=== PATIENT | male | born 1965 | race Asian ===

== ENCOUNTER 2024-07-10 21:00 | Inpatient (IN) | payer OTHER, SELFPAY ==
[2024-07-10] VITALS (10 sets, daily range): BP systolic 75–133; BP diastolic 56–71; BMI 33.3
--- NOTE | 2024-07-10 16:12 | ED.GENMED ---
History of Present Illness
General
Chief Complaint: Dizziness
Source: patient
Exam Limitations: none
Time Seen by Provider: 07/10/24 16:02
History of Present Illness
History of Present Illness:
See MDM
Past History
Past History
ED Past Medical History: None
ED Past Surgical History: None
Social History
Tobacco: Non-smoker
Alcohol: None
Phy Exam
Physical Exam
Physical Exam:
See MDM
Course
Orders/Labs/Results
Orders:
Orders
07/10/24 16:11
Electrocardiogram (*1) Urgent
Reason for Study: Shortness of Breath
EKG- Treatment ONCE
0.9% Sodium Chloride 1000 ml [Nss] 1,000 ml IV BOLUS
Acetaminophen [Tylenol] 1,000 mg PO NOW STA
CR Chest - 2 Views Urgent
Comment:
Reason For Exam: cough, fever
07/10/24 16:13
COVID-19 Antigen Urgent
Source: Nasal Swab
Complete Blood Count/With Diff Urgent
Comprehensive Metabolic Panel Urgent
Lactic Acid Q4H
Comment: CANCEL 2nd LACTIC ACID IF 1st LACTIC ACID IS LESS THAN 2
Blood Culture Urgent
BAKARI Source: Blood/Venous
Specimen Description:
Influenza A+B Rapid Molecular Urgent
BAKARI Source: Nasal Swab
Specimen Description:
07/10/24 17:50
0.9% Sodium Chloride 1000 ml [Nss] 1,000 ml IV BOLUS
Ketorolac [Toradol] 30 mg IV NOW STA
07/10/24 17:54
Urinalysis Reflex To Culture Urgent
Date Specimen was Collected: 07/10/24
Time Specimen was Collected: 17:46
07/10/24 19:52
Piperacillin/Tazo 3.375 Gram [Zosyn] 3.375 gram in 50 ml IV NOW
Vancomycin [Vancocin] 2,000 mg 0.9% Sodium Chloride 500 ml [Nss] 500 ml IV NOW
07/10/24 19:55
NSS 1000mL Bolus over 1 hr 0.9% Sodium Chloride 1000 ml [Nss] 1,000 ml IV BOLUS
07/10/24 20:15
Lactic Acid Q4H
Comment: CANCEL 2nd LACTIC ACID IF 1st LACTIC ACID IS LESS THAN 2
Abnormal Lab Results
07/10/24
16:13
RBC 4.36 L 10^6/uL
(4.70-6.10)
MCH 33.5 H pg
(27.0-31.0)
Absolute Lymphs (auto) 0.8 L 10^3/uL
(1.2-3.4)
Absolute Monos (auto) 0.0 L 10^3/uL
(0.1-0.6)
Immature Gran % 0.6 H %
(0-0.5)
Neutrophils % 82.4 H %
(42.2-75.2)
Lymphocytes % 15.8 L %
(20.5-51.1)
Monocytes % 0.4 L %
(1.7-9.3)
Carbon Dioxide 21 L mmol/L
(22-30)
Glucose 107 H mg/dl
(70-99)
Lactic Acid 2.7 H mmol/L
(0.7-2.0)
07/10/24 16:13
07/10/24 16:13
Vital Signs
Initial and Last Documented VS:
Initial Vital Signs
Pulse Resp Pulse Ox
113 22 95
07/10/24 16:03 07/10/24 16:03 07/10/24 16:03
Last Documented Vital Signs
Temp Pulse Resp BP Pulse Ox
98.0 F 107 27 83/67 96
07/10/24 19:42 07/10/24 19:36 07/10/24 19:36 07/10/24 19:36 07/10/24 19:36
MDM/Problems Addressed
Differential Diagnosis Includes:
HPI and MDM Narrative:
58-year-old male presenting for evaluation of fever and chills. This occurred soon after he ate lunch today. He is starting to quit smoking so he was started nicotine gum for the first time today. Soon afterwards, patient felt all of the
symptoms. He states he is using the gum this time because he is allergic to the nicotine patch.
Patient found to have a fever 102.9 orally. Will give Tylenol. Will look for source of infection. He has no rash or evidence of meningismus. He is otherwise well-appearing nontoxic. Given the mild cough that he discusses, will obtain chest
x-ray and COVID test
Physical exam
General: Well appearing and non-toxic
HEENT: protecting airway. Mildly dry mucous membranes
Neck: No meningismus, supple
CV: No evidence of cyanosis. Mild tachycardia
Resp: No accessory muscle use
Abd: Non-distended
Extremities: No deformities . No leg edema or effusions
Neuro: alert
Psych: Normal affect
Skin: Warm
Problems Addressed including Acute and Chronic Conditions affecting care:
1. Fever
Acuity: acute
Prognosis: stable
Details: Patient with Tylenol. Will look for source of infection
Updates
After IV fluids, blood pressure is dropping. Given the elevated lactic acid, there is concern for sepsis. Patient started on vancomycin and Zosyn. Chest x-ray concerning for possible left lower lobe pneumonia. Will admit
Differential Diagnosis (but not limited to): COVID, pneumonia, UTI
Testing considered: D-dimer but tachycardia likely in the setting of fever
Drug therapy (if applicable): OTC meds, please see d/c instruction regarding Rx drugs
Amount and/or Complexity of Data Reviewed
Clinical info obtained from: Patient
External data reviewed: N/A
Labs I independently reviewed (but not limited to): Elevated lactic acid
Radiology: X-ray independently reviewed: Questionable left lower lobe pneumonia on chest x-ray
Pulse Ox: not hypoxic
EKG independently reviewed: Sinus tachycardia, normal axis, no STEMI
Elderly Companion: Sinus rhythm
Critical Care: N/A
Risk of Complication:
Social Determinants of health: Good social support
Discussed with other providers: Hospitalist
Escalation of Care includes Admit/Obs: Given the fever and concern for sepsis, patient started on broad-spectrum antibiotics and will admit
Occasional wrong word or 'sound a like' substitutions may have occurred due to the inherent limitations of voice recognition software. Read the chart carefully and recognize, using context, where substitutions have occurred.
*Critical Care Note
Total Time (30-74mins, 75-104mins- exclusive of procedures): Not Applicable
ED Attending Note
-
Portions of this chart may have been created with voice recognition software.� Occasional wrong word or��sound alike� substitutions may have occurred due to the inherent limitations of voice recognition software.
Discharge Plan
Departure
Patient Disposition: Admit
Date of Disposition: 07/10/24
Time of Disposition: 19:56
Admit to: IMU
Presentation/result/management discussed w/ accepting MD/DO: Hospitalist
Discharge Problem:
PNA (pneumonia)
Referrals:
Dhruv Torres DO [Family Provider] -
Interventions
Interventions:
*Risk Screen - Suicide Last Done: 07/10/24 16:06
*General Assessment Last Done: 07/10/24 16:06
*Neglect/Abuse Screening Last Done: 07/10/24 16:06
ED- Fall Risk Assessment Last Done: 07/10/24 16:50
ED- Neurological Assessment Last Done: 07/10/24 16:50
Discharge Date and Time
Print Language: UKRAINIAN
[2024-07-10] MEDS: TYLENOL 1000 MG PO (16:15)
[2024-07-10] MEDS: NSS 1000 IV ×3 (16:16→20:09)
[2024-07-10 16:36] LABS: Lactic Acid 2.7 mmol/L (0.7-2.0)
[2024-07-10 16:39] LABS: ALT (SGPT) 26 U/L (0-50); AST (SGOT) 35 U/L (17-59); Albumin 4.3 g/dl (3.5-5.0); Alkaline Phosphatase 88 U/L (38-126); Blood Urea Nitrogen 13 mg/dl (9-20); Carbon Dioxide 21 mmol/L (22-30); Chloride 104 mmol/L (98-107); Glucose 107 mg/dl (70-99); Potassium 3.6 mmol/L (3.5-5.1); Sodium 136 mmol/L (135-145); Total Bilirubin 1.1 mg/dl (0.2-1.3); Total Protein 6.9 g/dl (6.3-8.2); eGFR > 60.00
[2024-07-10 16:42] LABS: COVID-19 Antigen Negative (Negative)
[2024-07-10 16:47] LABS: Hematocrit 40.5 % (39.0-52.0); Hemoglobin 14.6 g/dL (13.0-18.0); Mean Corpuscular Hgb 33.5 pg (27.0-31.0); Mean Corpuscular Volume 92.9 fL (80.0-94.0); Mean Platelet Volume 9.9 fL (7.4-10.4); Platelet Count 186 10^3/uL (130-400); Red Blood Cell Count 4.36 10^6/uL (4.70-6.10); Red Cell Dist. Width 12.8 % (11.5-14.5); White Blood Cell Count 5.1 10^3/uL (4.8-10.8)
[2024-07-10 16:53] LABS: % Basophils 0.2 % (0-2); % Eosinophils 0.6 % (0-6); % Immature Granulocytes 0.6 % (0-0.5); % Lymphocytes 15.8 % (20.5-51.1); % Monocytes 0.4 % (1.7-9.3); % Neutrophils 82.4 % (42.2-75.2); Absolute Lymphocytes 0.8 10^3/uL (1.2-3.4); Absolute Neutrophils 4.2 10^3/uL (1.4-6.5); Nucleated Red Blood Cells % 0 % (-)
[2024-07-10] MEDS: TORADOL 30 MG IV (17:57)
[2024-07-10 18:05] LABS: Urine Albumin Negative (Neg - Trace); Urine Bilirubin Negative (Negative); Urine Character Clear (Clear); Urine Color Yellow; Urine Glucose Negative (Negative); Urine Ketone Negative (Negative); Urine Leukocyte Negative (Negative); Urine Nitrite Negative (Negative); Urine Occult Blood Negative (Negative); Urine Specific Gravity 1.015 (<1.030); Urine Urobilinogen 1+ (Neg - 1+)
[2024-07-10] MEDS: ZOSYN 50 IV (20:09)
--- NOTE | 2024-07-10 20:14 | HPS.HSE ---
Addendum entered and electronically signed by Aiden Mendoza MD 07/10/24 21:09:
Patient later developed chest pain 7 out of 10. Repeat EKG shows sinus tachycardia without any notable ST-T wave changes. Check troponin. Tylenol, Toradol for pain.
Original Note:
Family Physician
-
Family Physician: Dhruv Torres
Chief Complaint
-
fever
History of Present Illness
58-year-old male past medical history of diabetes, hyperlipidemia, depression, spinal fusion, GERD, constipation, presenting with sudden onset of fevers and chills this afternoon. He denies any cough or shortness of breath or chest pain. He did
have some nausea but denies vomiting. He has been having some abdominal distention for the past few weeks but denies any abdominal pain. He has recently been constipated but had a bowel movement this morning. He denies any diarrhea. He denies
any urinary symptoms such as burning or frequency. He denies any sore throat or runny nose or sick contacts.
He is a former smoker. He denies alcohol use.
Medical History
Past Medical History
Past Medical History: Reports Other (iabetes, hyperlipidemia, depression, spinal fusion, GERD, constipation)
Past Surgical History: Reports Other (Cholecystectomy, hernia repair, spinal fusion)
Social History
Tobacco: Former Smoker
Alcohol: None
Drug: None
Family History
Family History: Not pertinent
Allergies / Home Medications
Allergies reflects when Allergies were last updated in [employer] [facility].
Home Medications with original date entered in [employer] [facility]
Allergy/Medication List:
Allergies
Allergy/AdvReac Type Severity Reaction Status Date / Time
nicotine Allergy Unknown Unknown Verified 07/10/24 16:05
Home Medications
amitriptyline 50 mg tablet 50 mg PO HS 07/10/24
atorvastatin 40 mg tablet 40 mg PO DAILY 07/10/24
duloxetine 60 mg capsule,delayed release 60 mg PO DAILY 07/10/24
fenofibrate nanocrystallized 145 mg tablet 145 mg PO HS 07/10/24
meloxicam 15 mg tablet 15 mg PO DAILY 07/10/24
metformin 500 mg tablet 500 mg PO BID 07/10/24
omeprazole 20 mg capsule,delayed release 20 mg PO BID 07/10/24
polyethylene glycol 3350 17 gram/dose oral powder 17 g PO DAILY 07/10/24
Review of Systems
-
History Source: Patient
A 12 point ROS was completed and negative except as noted: Yes
Constitutional: Reports No Symptoms
EENT: Reports No Symptoms
Respiratory: Reports No Symptoms
Cardiac: Reports No Symptoms
Abdomen/GI: Reports See HPI
: Reports No Symptoms
Musculoskeletal: Reports No Symptoms
Skin: Reports No Symptoms
Neurological: Reports No Symptoms
Endocrine: Reports No Symptoms
Hematologic/Lymphatic: Reports No Symptoms
Psych: Reports No Symptoms
Physical Exam
Vital Signs
Vital Signs
Temp Pulse Resp BP Pulse Ox
98.0 F 107 27 83/67 96
07/10/24 19:42 07/10/24 19:36 07/10/24 19:36 07/10/24 19:36 07/10/24 19:36
Physical Exam
General: Well Developed, Well Nourished and No Apparent Distress
HEENT: NormoCephalic, Moist mucous membranes and Atraumatic
Respiratory: Clear
Cardiac: S1/S2 and Regular Rhythm; No Murmur or Rub
GI: Soft, Non Tender, Normal Bowel Sounds and Distended; No Organomegaly
Rectal: Deferred by Provider
Musculoskeletal: No Clubbing, No Cyanosis and No Edema
Skin: No Rash
Neuro: Nonfocal/grossly intact
Laboratory Results
-
07/10/24 16:13
07/10/24 16:13
Laboratory Results
Lactic Acid 2.7 mmol/L (0.7-2.0) H 07/10/24 16:13
Total Bilirubin 1.1 mg/dl (0.2-1.3) 07/10/24 16:13
AST 35 U/L (17-59) 07/10/24 16:13
ALT 26 U/L (0-50) 07/10/24 16:13
Alkaline Phosphatase 88 U/L (38-126) 07/10/24 16:13
Data Reviewed
-
Lab Data: Labs Reviewed by me
Old Records: Reviewed
Impression/Plan
-
IMPRESSION:
PLAN:
#SIRS (fever, tachycardia, tachypnea, hypotension) unclear source possibly pneumonia versus intra-abdominal infection
-Abdomen distended but no tenderness
-Check blood cultures
-Chest x-ray appearing to show bilateral infiltrates but does not correlate clinically, report pending
-Check CT chest, abdomen pelvis with IV contrast
-IV fluids
-Vancomycin/Zosyn
Type 2 diabetes
-Hold metformin
-Insulin sliding scale
Hyperlipidemia
-Continue statin, fenofibrate
Anxiety/depression
-Continue amitriptyline, duloxetine
History of spinal fusion
-continue meloxicam
GERD
-Continue omeprazole
Constipation
-Continue MiraLAX
BPH
Full code
DVT prophylaxis�heparin
Regular diet
[2024-07-10 20:48] LABS: Lactic Acid 1.7 mmol/L (0.7-2.0)
[2024-07-10] MEDS: LEVOPHED 250 IV (21:31)
[2024-07-10] MEDS: VANCOCIN 540 MG IV (21:32)
[2024-07-10 22:14] LABS: Troponin I < 0.012 ng/ml
--- NOTE | 2024-07-10 23:00 | PHA.VAN.IN ---
Assessment
- Assessment
Renal Function: Unknown baseline
Concomitant Antimicrobials: ZOSYN
- Previous Dosing Experience
Previous Regimen: NONE
AUC Dosing Plan
- Dosing Variables
Dosing Weight (kg): 89.4
Dosing CrCl (ml/min): 89
Vd coefficient (L/kg): 0.6
- Empiric Dosing
Initial / Loading Dose: 2GM
Maintenance Regimen: 1GM IV Q12H
Estimated AUC (mcg*h/mL): 495
Estimated Peak (mcg*h/mL): 30.6
Estimated Trough (mcg/ml): 12.9
Estimated Half Life (H): 8.9
Pharmacokinetics Vancomycin I
- -
Patient Age: 58
Patient Sex: Male
Vancomycin Day #: 1
Indication: Pulmonary/Respiratory (SIRS)
Requesting Provider: KERRY
Height / Weight:
Height 5 ft 4.5 in
Actual Weight 89.4 kg
- Vital Signs / Lab Results
Temp Pulse Resp BP Pulse Ox
98.0 F 101 24 89/60 100
07/10/24 19:42 07/10/24 22:15 07/10/24 22:15 07/10/24 22:00 07/10/24 22:15
Lab Results - Hematology
07/10/24
16:13
WBC 5.1
Lab Results - Chemistry
07/10/24
16:13
BUN 13
Creatinine 0.9
Albumin 4.3
07/10/24 07/10/24
16:13 20:08
Lactic Acid 2.7 H 1.7
Lab Results - Urine
07/10/24
17:54
Urine Nitrite (Reflex) Negative
Leukocyte Esterase Rfl Negative
Microbiology Results
07/10/24 16:13 Influenza Types A & B (RICHAR) - Final
Nasal Swab Negative for Influenza A & B, NAAT
Negative results must be combined with clinical observations
and patient history.
Nucleic Acid Amplification test (NAAT)performed on the
[employer] platform.
[2024-07-11] VITALS (36 sets, daily range): BP systolic 78–144; BP diastolic 53–93; BMI 32.9
[2024-07-11] MEDS: NSS 1000 IV ×3 (00:03→17:17)
[2024-07-11] MEDS: ELAVIL 50 MG PO ×2 (00:30→21:23)
[2024-07-11] MEDS: TRICOR 145 MG PO ×2 (00:30→21:23)
[2024-07-11] MEDS: ZOSYN 50 IV ×4 (01:57→20:08)
[2024-07-11 02:00] LABS: Glucose - Point of Care 123 mg/dl (70-99)
--- NOTE | 2024-07-11 03:18 | PTCARENOTE ---
Rec'd pt from ED RN, presents very drowsy, but is able to answer questions appropriately. Pt was incontinent of small, soft BM due to urgency. Levo gtt in place at 15mL/hr through L AC IV, see worklist. IVF intact through R wrist IV. Pt rings call
murillo appropriately.
[2024-07-11] MEDS: VANCOCIN 200 IV (05:16)
[2024-07-11 05:48] LABS: Hematocrit 38.5 % (39.0-52.0); Hemoglobin 13.9 g/dL (13.0-18.0); Mean Corp Hgb Conc. 36.1 g/dL (33.0-37.0); Mean Corpuscular Hgb 33.5 pg (27.0-31.0); Mean Corpuscular Volume 92.8 fL (80.0-94.0); Platelet Count 152 10^3/uL (130-400); Red Blood Cell Count 4.15 10^6/uL (4.70-6.10); Red Cell Dist. Width 13.1 % (11.5-14.5); White Blood Cell Count 16.4 10^3/uL (4.8-10.8)
[2024-07-11 06:09] LABS: ALT (SGPT) 31 U/L (0-50); AST (SGOT) 46 U/L (17-59); Albumin 3.4 g/dl (3.5-5.0); Alkaline Phosphatase 78 U/L (38-126); Blood Urea Nitrogen 11 mg/dl (9-20); Calcium 8.1 mg/dl (8.4-10.2); Carbon Dioxide 17 mmol/L (22-30); Chloride 110 mmol/L (98-107); Estimated Creatinine Clearance 80 ml/min; Glucose 138 mg/dl (70-99); Potassium 3.9 mmol/L (3.5-5.1); Sodium 137 mmol/L (135-145); Total Bilirubin 1.8 mg/dl (0.2-1.3); Total Protein 5.9 g/dl (6.3-8.2); eGFR > 60.00
[2024-07-11 07:07] LABS: Absolute Neutrophils -Man Diff 14.4 10^3/uL (1.4-6.5); Band Neutrophils 14 % (0-3); Eosinophils 1 % (0-6); Lymphocytes 6 % (20-51); Monocytes 4 % (2-9); Normal RBC Morphology Yes; Platelets Checked Yes; Segmented Neutrophils 74 % (42-75); Total Cells Counted 100
[2024-07-11 07:08] LABS: Myelocytes 1 % (-)
[2024-07-11 07:37] LABS: Glucose - Point of Care 129 mg/dl (70-99)
[2024-07-11] MEDS: MOBIC 15 MG PO (08:09)
[2024-07-11] MEDS: CYMBALTA DELAYED RELEASE 60 MG PO (08:09)
[2024-07-11] MEDS: LIPITOR 40 MG PO (08:09)
[2024-07-11] MEDS: PROTONIX 40 MG PO ×2 (08:09→20:08)
[2024-07-11] MEDS: HEPARIN 5000 UNITS SC ×2 (08:11→20:07)
--- NOTE | 2024-07-11 09:56 | W.PN.HOSP.TC ---
Today's Communication/Plan
-
wean off pressors
low dose midodrine
stool studies
cont zosyn, d/c vanc
ID eval
Assessment / Plan
Assessment / Plan
Physical Exam
General: Well Developed, Well Nourished and No Apparent Distress
HEENT: NormoCephalic, Moist mucous membranes and Atraumatic
Respiratory: Clear
Cardiac: S1/S2 and Regular Rhythm; No Murmur or Rub
GI: Soft, Non Tender, Normal Bowel Sounds and Distended; No Organomegaly
Musculoskeletal: No Clubbing, No Cyanosis and No Edema
Skin: No Rash
Neuro: Nonfocal/grossly intact
58M DM HLD Depression Spinal Fusion GERD here with Septic Shock Bacteremia Klebsiella unknown source.
#Septic Shock (fever, tachycardia, tachypnea, hypotension) unclear source possibly pneumonia versus intra-abdominal infection
#Bacteremia Klebsiella
-follow blood cultures
-Chest x-ray appreciated
-CT chest appreciated
-IV fluids
-cont Zosyn, empiric vanc discontinued
-wean off pressors as tolerated
-low dose midodrine
-ID eval
Type 2 diabetes
-Hold metformin
-Insulin sliding scale
Hyperlipidemia
-Continue statin, fenofibrate
Anxiety/depression
-Continue amitriptyline, duloxetine
History of spinal fusion
-continue meloxicam
GERD
-Continue omeprazole
Constipation
-Continue MiraLAX
BPH
Full code
DVT prophylaxis�heparin
Regular diet
I spent a total of 50 minutes with the patient or on the floor. More than 50% of this time involved counseling and coordination of care.
Anticipated Discharge: > 48 hours
Subjective/Interval History
-
Date of Service: July 11, 2024
Seen and examined at bedside in no acute distress resting comfortably in bed. Patient having diarrhea throughout day possibly adverse effect abx.
Objective Data
-
Labs:
Laboratory Results
07/11/24
05:18
WBC 16.4 H
Hgb 13.9
Hct 38.5 L
Plt Count 152
Sodium 137
Potassium 3.9
Chloride 110 H
Carbon Dioxide 17 L
BUN 11
Creatinine 1.0
Glucose 138 H
Calcium 8.1 L
Total Bilirubin 1.8 H
AST 46
ALT 31
Alkaline Phosphatase 78
Vital Signs:
Vital Signs
Temp Pulse Resp BP Pulse Ox
99.0 F 81 19 100/75 94
07/11/24 07:51 07/11/24 08:45 07/11/24 08:45 07/11/24 08:45 07/11/24 08:45
I&O
07/10/24 07/11/24 07/12/24
06:59 06:59 06:59
Output Total 500 / 500 300 / 300
Balance -500 / -500 -300 / -300
[2024-07-11 12:26] LABS: Glucose - Point of Care 111 mg/dl (70-99)
[2024-07-11 12:30] LABS: Glycohemoglobin (HgbA1c) 6.5 % (4.0-5.6)
[2024-07-11] MEDS: ProAmatine 2.5 MG PO ×2 (12:49→17:16)
[2024-07-11] MEDS: TYLENOL 650 MG PO (12:51)
--- NOTE | 2024-07-11 14:36 | CON.ID ---
Consultation
-
Date/Time Consultation Requested: 07/11/2024 1120
Date/Time Consultation Performed: 07/11/2024 1430
Requesting Provider: Dr. Riley
Performing Provider: Dr. Simpson
Reason for Consultation: Septic shock; bacteremia
Chief Complaint / Past History
History of Present Illness
Candido Newman is a 58-year-old male being evaluated at the request of Dr. Riley in regards to bacteremia. History is obtained from chart review, along with patient interview.
The patient has a significant PMH of DM who presented to the emergency room at [facility] following the abrupt onset of fevers and chills soon after he ate lunch earlier that day. In the ER he was found to be febrile to 102.9 degrees.
Blood cultures obtained in the ER are now positive for Klebsiella pneumonia.
Patient denied any significant pain, and he has no prior history of similar episodes. He admitted to nausea at the time, but denied any vomiting or diarrhea.
He has not had any recent travel, there are no pets in the house.
At present, he feels 'okay'. He continues to deny any abdominal pain. He denies any significant cough or shortness of breath. There are no sick contacts.
Past History
Additional Past Medical History:
DM
Dyslipidemia
Depression
GERD
Constipation
Additional Past Surgical History:
Spinal fusion
Hernia repair
Cholecystectomy
Allergy History:
nicotine Allergy (Verified 07/10/24 20:41)
Unknown
Medications Reviewed: Yes
Current Antibiotics:
Zosyn 3.375 g IV every 6 hours
Social History
Tobacco: Former Smoker
Alcohol: None
Drug: None
Personal:
Living: With Family
Employment: Employed (Day labor)
Family History
Family History: Not Pertinent
Review of Systems
Vital Signs
Temp Pulse Resp BP Pulse Ox
99.6 F 76 20 114/92 95
07/11/24 11:26 07/11/24 11:00 07/11/24 11:00 07/11/24 11:00 07/11/24 11:00
Physical Exam
Physical Exam
Constitutional: No Acute Distress, Comfortable, Non-toxic and Obese
Eyes: Pupils Equal, Pupils Round, No Conjunctival Hemorrhage and Sclera Anicteric
Oral: No Thrush and No Ulcers
Cardiovascular: Regular Rate and S1/S2; Negative S3/S4 or Murmur
Pulmonary: Clear and Non Labored; Negative Wheezes, Rales or Rhonchi
Gastrointestinal: Soft, Non Tender, Non Distended, Normal Bowel Sounds, No Rebound and No Guarding
Genito-Urinary: Negative Britton or CVA Tenderness
Skin: Warm and Dry; Negative Rash or Jaundice
Neurological: Awake and Alert
Psychological: Calm
.
Lab / Diagnostic Study Results
07/11/24 05:18
07/11/24 05:18
Abs Immat Gran (auto) 0.0 10^3/uL (0-0.05) 07/10/24 16:13
Absolute Neuts (auto) 4.2 10^3/uL (1.4-6.5) 07/10/24 16:13
Absolute Lymphs (auto) 0.8 10^3/uL (1.2-3.4) L 07/10/24 16:13
Absolute Monos (auto) 0.0 10^3/uL (0.1-0.6) L 07/10/24 16:13
Absolute Basos (auto) 0.0 10^3/uL (0-0.2) 07/10/24 16:13
Total Counted 100 07/11/24 05:18
Immature Gran % 0.6 % (0-0.5) H 07/10/24 16:13
Neutrophils % 82.4 % (42.2-75.2) H 07/10/24 16:13
Lymphocytes % 15.8 % (20.5-51.1) L 07/10/24 16:13
Monocytes % 0.4 % (1.7-9.3) L 07/10/24 16:13
Eosinophils % 0.6 % (0-6) 07/10/24 16:13
Basophils % 0.2 % (0-2) 07/10/24 16:13
Abs Neuts (Manual) 14.4 10^3/uL (1.4-6.5) H 07/11/24 05:18
Segmented Neutrophils 74 % (42-75) 07/11/24 05:18
Band Neutrophils 14 % (0-3) H 07/11/24 05:18
Lymphocytes (Manual) 6 % (20-51) L 07/11/24 05:18
Eosinophils (Manual) 1 % (0-6) 07/11/24 05:18
Lactic Acid 1.7 mmol/L (0.7-2.0) 07/10/24 20:08
Microbiology Results
Micro:
07/11/24 13:22 Blood Culture - Pending
Blood/Venous
07/10/24 20:40 Blood Culture - Preliminary
Blood/Venous Positive culture in progress
Gram Stain - Preliminary
07/10/24 16:13 Blood Culture - Preliminary
Blood/Venous Klebsiella pneumoniae
Gram Stain - Final
07/10/24 16:13 Influenza Types A & B (RICHAR) - Final
Nasal Swab Negative for Influenza A & B, NAAT
Negative results must be combined with clinical observations
and patient history.
Nucleic Acid Amplification test (NAAT)performed on the
[employer] platform.
Imaging:
07/10/2024 CT abdomen/pelvis: No significant acute abnormality identified in the chest, abdomen or pelvis. No CT evidence for pneumonia. There is an indeterminant 1.8 cm hypoattenuating hepatic lesion. This could be further evaluated on a
nonemergent basis with dedicated MRI abdomen without and with gadolinium contrast. Please see full dictation for additional detail.
Assessment / Plan
Klebsiella bacteremia
Fever
Leukocytosis
DM
Dyslipidemia
Depression
GERD
Constipation
Recommendations:
Continue with empiric Zosyn for now. Sensitivities are pending of recovered isolate.
Source of bacteremia not entirely clear, although suspected GI etiology (? Passed gallstone).
Monitor white count and temperature curve.
Further recommendations as additional data is returned.
--- NOTE | 2024-07-11 15:15 | PTCARENOTE ---
Remains drowsy, lethargic. Not eating - encouraging PO fluids. IVF infusing/ IV Antibx. Levophed at 3 mcg this am weaned to 1mcg. Midodrine given and will attempt to wean off. See flowsheet. Had few scant small liq stools - will collect with
next one. Voiding adequate urinal. Skin moist/ hot. Tmax 99.6
C/o 8/10 headache- Tylenol given with good relief. S.O at bedside- helpful with care.
--- NOTE | 2024-07-11 16:45 | CM ---
Patient with Hx DM II with Dx SIRS. Room air. Receiving IV Abx, IVF. Weaning Levophed gtt - midodrine. Per nurse assessment; drowsy, lethargic, too weak to walk.
Spoke with patient's stepson Zunilda;
the patient resides with his Marta in a 2 story [address] with 3 + 4 DANI[address].
He has been assisted with ADLs such as bathing/dressing by his son Zunilda who is his paid caregiver 12noon - 6pm.
The patient can only ambulate short distances in the house.
The patient receives [employer] [facility] [facility] through [employer] [facility], and has a [place] [employer]inist (son doesn't have CM info at this time).
DME - [facility], [facility]. Does not have a glucometer.
No prior VN or SNF.
PCP - Dhruv Torres
Ph[facility] - [facility], [address]
Patient may benefit from PT/OT Evals when medically appropriate.
CM continuing to follow.
Plan TBD.
[2024-07-11 17:06] LABS: Glucose - Point of Care 83 mg/dl (70-99)
[2024-07-11] MEDS: SODIUM BICARBONATE 650 MG PO ×2 (17:16→21:24)
--- NOTE | 2024-07-11 18:18 | PTCARENOTE ---
Levophed infusion weaned off. Midodrine given. IVF infusing. Encouraging po fluids. 450ml urine output today. Currently oob to recliner chair- used bsc and stool specimen collected. (mod amt thick brown liquid).
[2024-07-11 22:50] LABS: Glucose - Point of Care 89 mg/dl (70-99)
--- NOTE | 2024-07-11 23:36 | PTCARENOTE ---
Pt able to ambulate from chair to bed with assistx1. IVF intact at 100ml/hr through R wrist IV. Denies complaints at this time. Maintains SR on open die inspector. This RN encouraged PO fluids, provided education on condition and POC. Call murillo within
reach
[2024-07-12] VITALS (15 sets, daily range): BP systolic 108–148; BP diastolic 60–97; PULSE 82–85; O2SAT 99; BMI 33.0
[2024-07-12] MEDS: ZOSYN 50 IV ×2 (01:00→09:14)
[2024-07-12 04:58] LABS: Hematocrit 34.4 % (39.0-52.0); Hemoglobin 12.6 g/dL (13.0-18.0); Mean Corp Hgb Conc. 36.6 g/dL (33.0-37.0); Mean Corpuscular Volume 90.1 fL (80.0-94.0); Mean Platelet Volume 10.2 fL (7.4-10.4); Platelet Count 141 10^3/uL (130-400); Red Blood Cell Count 3.82 10^6/uL (4.70-6.10); Red Cell Dist. Width 13.1 % (11.5-14.5); White Blood Cell Count 17.8 10^3/uL (4.8-10.8)
[2024-07-12] MEDS: NSS 1000 IV ×2 (05:08→14:14)
[2024-07-12 05:37] LABS: Blood Urea Nitrogen 13 mg/dl (9-20); Calcium 8.3 mg/dl (8.4-10.2); Carbon Dioxide 19 mmol/L (22-30); Chloride 109 mmol/L (98-107); Estimated Creatinine Clearance 114 ml/min; Glucose 93 mg/dl (70-99); Magnesium 1.8 mg/dl (1.6-2.3); Potassium 3.3 mmol/L (3.5-5.1); Sodium 135 mmol/L (135-145); eGFR > 60.00
--- NOTE | 2024-07-12 07:59 | W.PN.HOSP.TC ---
Addendum entered and electronically signed by Lydia Riley MD 07/13/24 08:05:
Acute Toxic Metabolic Encephalopathy
Original Note:
Today's Communication/Plan
-
repeat blood cultures
stable for downgrade to med surg
imodium prn diarrhea
abx merrem as per ID
replete K phos
Assessment / Plan
Assessment / Plan
Physical Exam
General: Well Developed, Well Nourished and No Apparent Distress
HEENT: NormoCephalic, Moist mucous membranes and Atraumatic
Respiratory: Clear
Cardiac: S1/S2 and Regular Rhythm; No Murmur or Rub
GI: Soft, Non Tender, Normal Bowel Sounds and Distended; No Organomegaly
Musculoskeletal: No Clubbing, No Cyanosis and No Edema
Skin: No Rash
Neuro: AOx3
58M DM HLD Depression Spinal Fusion GERD here with Septic Shock Bacteremia Klebsiella unknown source.
#Septic Shock (fever, tachycardia, tachypnea, hypotension) unclear source possibly pneumonia versus intra-abdominal infection
#Bacteremia Klebsiella
-follow blood cultures, repeating given growth noted in last culture
-Chest x-ray appreciated Suspect mild left basilar pneumonia.
-CT chest appreciated no evidence pna, 1.8 cm hepatic lesion non-emergent MR w/wo contrast recommended, small LLL nodule follow up CT 12 mos recommended
-IV fluids
-empiric vanc discontinued
-weaned off pressors, stable for downgrade to med/surg
-low dose midodrine
-ID eval appreciated zosyn switched to meropenem
Diarrhea
-cdiff neg likely adverse effect abx
-imodium prn
Hypokalemia
Hypophosphatemia
-likely d/t diarrhea
-monitor replete as necessary
Type 2 diabetes
-Hold metformin
-Insulin sliding scale
Hyperlipidemia
-Continue statin, fenofibrate
Anxiety/depression
-Continue amitriptyline, duloxetine
History of spinal fusion
-continue meloxicam
GERD
-Continue omeprazole
Constipation
-Continue MiraLAX
BPH
PT/OT
Full code
DVT prophylaxis�heparin
Regular diet
I spent a total of 50 minutes with the patient or on the floor. More than 50% of this time involved counseling and coordination of care.
Anticipated Discharge: > 48 hours
Subjective/Interval History
-
Date of Service: July 12, 2024
Seen and examined at bedside in no acute distress resting comfortably in bed. Diarrhea persists. Coughing minimal nonproductive per patient. Overall patient reports feeling well though fatigue. No new fever.
Objective Data
-
Labs:
Laboratory Results
07/12/24
04:35
WBC 17.8 H
Hgb 12.6 L
Hct 34.4 L
Plt Count 141
Sodium 135
Potassium 3.3 L
Chloride 109 H
Carbon Dioxide 19 L
BUN 13
Creatinine 0.7
Glucose 93
Calcium 8.3 L
Vital Signs:
Vital Signs
Temp Pulse Resp BP Pulse Ox
98.1 F 76 20 126/79 92
07/12/24 03:57 07/12/24 06:00 07/12/24 06:00 07/12/24 06:00 07/12/24 06:00
I&O
07/11/24 07/12/24 07/13/24
06:59 06:59 06:59
Intake Total 3620 / 3620
Output Total 500 / 500 1275 / 1275
Balance -500 / -500 2345 / 2345
[2024-07-12] MEDS: SODIUM BICARBONATE 650 MG PO ×3 (09:15→22:09)
[2024-07-12] MEDS: PROTONIX 40 MG PO ×2 (09:15→22:09)
[2024-07-12] MEDS: CYMBALTA DELAYED RELEASE 60 MG PO (09:15)
[2024-07-12] MEDS: LIPITOR 40 MG PO (09:16)
[2024-07-12] MEDS: ProAmatine PO ×2 (09:16→12:15)
[2024-07-12] MEDS: HEPARIN 5000 UNITS SC ×2 (09:17→22:09)
[2024-07-12] MEDS: MOBIC 15 MG PO (09:17)
--- NOTE | 2024-07-12 09:35 | W.PN.ID1 ---
Date of Service
Date of Service: July 12, 2024
Today's Communication
Continue antibiotics. Transition to meropenem empirically. Await further culture data.
Assessment / Plan
Klebsiella bacteremia (sustained)
Fever
Leukocytosis
DM
Dyslipidemia
Depression
GERD
Constipation
Recommendations:
Repeat blood cultures again show gram-negative rods.
Transition to empiric meropenem.
Await further culture data to guide antimicrobial selection and potential de-escalation.
Will repeat blood cultures again tomorrow to assess clearance.
Continue to monitor white count and temperature curve.
Further recommendations as additional data is returned.
����������������������������������������������������������
Chief Complaint
-: Bacteremia
Subjective / Review of Systems
Review of Systems: No Fever and No Chills
Vital Signs / Physical Exam
Vital Signs
Vital Signs
Temp Pulse Resp BP Pulse Ox
97.5 F 76 20 126/71 92
07/12/24 07:00 07/12/24 06:00 07/12/24 06:00 07/12/24 09:16 07/12/24 06:00
Physical Exam
Constitutional: No Acute Distress, Comfortable and Non-toxic
Eyes: No Conjunctival Hemorrhage and Sclera Anicteric
Cardiovascular: S1/S2; Negative S3/S4
Pulmonary: Clear; Negative Wheezes or Rales
Gastrointestinal: Soft, Non Tender, Non Distended, Normal Bowel Sounds, No Rebound and No Guarding
Extremities: Negative Erythema
Musculoskeletal: Negative Joint Swelling
Skin: Negative Rash or Jaundice
Neurological: Awake, Alert and Oriented
Psychological: Calm
Objective Data
Lab Data
Lab Results
07/12/24 04:35
07/12/24 04:35
Estimated Creat Clear 114 ml/min 07/12/24 04:35
Lactic Acid 1.7 mmol/L (0.7-2.0) 07/10/24 20:08
Total Bilirubin 1.8 mg/dl (0.2-1.3) H 07/11/24 05:18
AST 46 U/L (17-59) 07/11/24 05:18
ALT 31 U/L (0-50) 07/11/24 05:18
Alkaline Phosphatase 78 U/L (38-126) 07/11/24 05:18
Most recent labs reviewed.
Micro Results:
07/11/24 13:22 Blood Culture - Preliminary
Blood/Venous Positive culture in progress
Gram Stain - Final
07/11/24 17:51 C. difficile GDH Antigen & Toxins - Final
Feces/Stool Negative for toxigenic C.difficile
07/11/24 17:51 Salmonella/Shigella Culture - Pending
Feces/Stool Campylobacter Culture - Pending
Shiga Toxin Test - Pending
07/10/24 20:40 Blood Culture - Preliminary
Blood/Venous Positive culture in progress
Gram Stain - Preliminary
07/10/24 16:13 Blood Culture - Preliminary
Blood/Venous Klebsiella pneumoniae
Gram Stain - Final
07/10/24 16:13 Influenza Types A & B (RICHAR) - Final
Nasal Swab Negative for Influenza A & B, NAAT
Negative results must be combined with clinical observations
and patient history.
Nucleic Acid Amplification test (NAAT)performed on the
[employer] platform.
Imaging:
07/10/2024 CT abdomen/pelvis: No significant acute abnormality identified in the chest, abdomen or pelvis. No CT evidence for pneumonia. There is an indeterminant 1.8 cm hypoattenuating hepatic lesion. This could be further evaluated on a
nonemergent basis with dedicated MRI abdomen without and with gadolinium contrast. Please see full dictation for additional detail.
[2024-07-12 09:37] LABS: Glucose - Point of Care 88 mg/dl (70-99)
[2024-07-12] MEDS: POTASSIUM PHOSPHATE 259.0909 MEQ IV (09:45)
--- NOTE | 2024-07-12 10:30 | PN.CDI ---
CDI
- -
CDI:
Physician Documentation Request
Admit Date: 07/10/24 21:00
Dear Doctor Osvaldo,
Clinical Indicators:
Patient admitted with septic shock.
07/11 (03:18) RN note, '..presents very drowsy, but is able to answer questions appropriately'
07/11 (15:15) RN note, 'Remains drowsy, lethargic.'
07/11 (16:45) CM note, 'Per nurse assessment; drowsy, lethargic, too weak to walk.'
Based on the above, could you clarify in the Progress Notes and Discharge Summary which, if any of the following, is the most likely etiology of the altered mental status.
Acute Metabolic Encephalopathy
Lethargy only
Other, please specify
Use of terms such as suspected, likely, concern for, or probable (associated with a specific diagnosis that is being evaluated, monitored, or treated as if it exists) are acceptable and can be coded in the inpatient setting, when documented at the
time of discharge.
Thank you,
Angela Gallego RN BSN
CDI Specialist
available via tiger text
Please use your independent medical judgment in providing your response.
[2024-07-12] MEDS: VISBIOME 1 CAP PO (10:44)
--- NOTE | 2024-07-12 10:55 | PTCARENOTE ---
Ox3, denies pain. Lethargic but arousable. Skin warm / moist. Will try to get into the bathroom after lunch to wash. PO midodrine held this am for SBP 126/71. Telemetry NSR, Afebrile. IVF infusing/ antibx as ordered. Still no appetite- clear
liquids ordered he will try to increase fluids. Voided in urinal 300. No stools today so far. in room.
[2024-07-12] MEDS: STERILE WATER FOR INJECTION 10 ML IV ×3 (12:14→23:10)
[2024-07-12] MEDS: MERREM 500 MG IV ×3 (12:15→23:11)
[2024-07-12 16:50] LABS: Glucose - Point of Care 83 mg/dl (70-99)
[2024-07-12] MEDS: ProAmatine 2.5 MG PO (18:02)
[2024-07-12 21:29] LABS: Glucose - Point of Care 76 mg/dl (70-99)
[2024-07-12] MEDS: TYLENOL 650 MG PO (22:08)
[2024-07-12] MEDS: ELAVIL 50 MG PO (22:09)
[2024-07-12] MEDS: TRICOR 145 MG PO (22:09)
[2024-07-13] MEDS: NSS 1000 IV ×2 (02:25→10:42)
[2024-07-13] MEDS: STERILE WATER FOR INJECTION 10 ML IV ×4 (05:20→23:58)
[2024-07-13] MEDS: MERREM 500 MG IV ×4 (05:20→23:58)
[2024-07-13 07:13] LABS: Glucose - Point of Care 79 mg/dl (70-99)
--- NOTE | 2024-07-13 07:25 | W.PN.HOSP.TC ---
Today's Communication/Plan
-
Kphos repletion
abx
imodium prn
P/OT
Assessment / Plan
Assessment / Plan
Physical Exam
General: Well Developed, Well Nourished and No Apparent Distress
HEENT: NormoCephalic, Moist mucous membranes and Atraumatic
Respiratory: Clear
Cardiac: S1/S2 and Regular Rhythm; No Murmur or Rub
GI: Soft, Non Tender, Normal Bowel Sounds and Distended; No Organomegaly
Musculoskeletal: No Clubbing, No Cyanosis and No Edema
Skin: No Rash
Neuro: AOx3
58M DM HLD Depression Spinal Fusion GERD here with Septic Shock Bacteremia Klebsiella unknown source.
#Septic Shock (fever, tachycardia, tachypnea, hypotension) unclear source possibly pneumonia versus intra-abdominal infection
#Bacteremia Klebsiella
#Acute Toxic Metabolic Encephalopathy Resolved
-follow blood cultures, repeating given growth noted in last culture
-Chest x-ray appreciated Suspect mild left basilar pneumonia.
-CT chest appreciated no evidence pna, 1.8 cm hepatic lesion non-emergent MR w/wo contrast recommended, small LLL nodule follow up CT 12 mos recommended
-IV fluids completed
-empiric vanc discontinued
-weaned off pressors, stable for downgrade to med/surg
-low dose midodrine discontinued with improvement in bp
-ID eval appreciated zosyn switched to meropenem
Diarrhea
-cdiff neg likely adverse effect abx
-imodium prn
Hypokalemia
Hypophosphatemia
-likely d/t diarrhea
-monitor replete as necessary
Type 2 diabetes
-Hold metformin
-Insulin sliding scale
Hyperlipidemia
-Continue statin, fenofibrate
Anxiety/depression
-Continue amitriptyline, duloxetine
History of spinal fusion
-continue meloxicam
GERD
-Continue omeprazole
Constipation
-Continue MiraLAX
BPH
PT/OT
Full code
DVT prophylaxis�heparin
Regular diet
I spent a total of 50 minutes with the patient or on the floor. More than 50% of this time involved counseling and coordination of care.
Anticipated Discharge: 24 - 48 hours
Subjective/Interval History
-
Date of Service: July 13, 2024
No acute distress appears comfortable at this time.
Objective Data
-
Labs:
Laboratory Results
07/13/24
07:24
WBC Pending
Hgb Pending
Hct Pending
Plt Count Pending
Sodium Pending
Potassium Pending
Chloride Pending
Carbon Dioxide Pending
BUN Pending
Creatinine Pending
Glucose Pending
Calcium Pending
Vital Signs:
Vital Signs
Temp Pulse Resp BP Pulse Ox
98.5 F 77 18 143/91 96
07/12/24 23:10 07/12/24 23:10 07/12/24 23:10 07/12/24 23:10 07/12/24 23:10
I&O
07/12/24 07/13/24 07/14/24
06:59 06:59 06:59
Intake Total 3620 / 3620 1630 / 1630
Output Total 1275 / 1275 1800 / 1800
Balance 2345 / 2345 -170 / -170
[2024-07-13 07:30] VITALS: BP 151/84
[2024-07-13 07:48] LABS: Hematocrit 36.1 % (39.0-52.0); Hemoglobin 13.1 g/dL (13.0-18.0); Mean Corp Hgb Conc. 36.3 g/dL (33.0-37.0); Mean Corpuscular Hgb 33.2 pg (27.0-31.0); Mean Corpuscular Volume 91.4 fL (80.0-94.0); Mean Platelet Volume 10.6 fL (7.4-10.4); Platelet Count 151 10^3/uL (130-400); Red Blood Cell Count 3.95 10^6/uL (4.70-6.10); Red Cell Dist. Width 12.8 % (11.5-14.5); White Blood Cell Count 13.6 10^3/uL (4.8-10.8)
[2024-07-13 08:06] LABS: Blood Urea Nitrogen 9 mg/dl (9-20); Calcium 8.4 mg/dl (8.4-10.2); Carbon Dioxide 22 mmol/L (22-30); Chloride 109 mmol/L (98-107); Estimated Creatinine Clearance 114 ml/min; Glucose 82 mg/dl (70-99); Phosphorus 2.3 mg/dl (2.5-4.5); Potassium 3.4 mmol/L (3.5-5.1); Sodium 136 mmol/L (135-145); eGFR > 60.00
[2024-07-13] MEDS: ProAmatine 2.5 MG PO (09:05)
[2024-07-13] MEDS: PROTONIX 40 MG PO ×2 (09:06→19:34)
[2024-07-13] MEDS: MOBIC 15 MG PO (09:06)
[2024-07-13] MEDS: LIPITOR 40 MG PO (09:06)
[2024-07-13] MEDS: CYMBALTA DELAYED RELEASE 60 MG PO (09:06)
[2024-07-13] MEDS: VISBIOME 1 CAP PO (09:06)
[2024-07-13] MEDS: SODIUM BICARBONATE 650 MG PO (09:06)
[2024-07-13] MEDS: HEPARIN 5000 UNITS SC ×2 (09:06→19:33)
[2024-07-13 11:44] LABS: Glucose - Point of Care 85 mg/dl (70-99)
[2024-07-13] MEDS: POTASSIUM PHOSPHATE 259.0909 MEQ IV (11:53)
--- NOTE | 2024-07-13 14:32 | CM ---
manager of recruiting spoke with patient and plan is to home with caregiver services from family, patient is declining visiting nurses at discharge.
Plan; Home no needs.
--- NOTE | 2024-07-13 14:40 | W.PN.ID1 ---
Date of Service
Date of Service: July 13, 2024
Today's Communication
Continue antibiotics.
Assessment / Plan
Klebsiella bacteremia (sustained)
- source unclear, although suspect GI etiology.
Fever
Leukocytosis
DM
Dyslipidemia
Depression
GERD
Constipation
Recommendations:
Continue empiric meropenem.
Await further culture data to guide antimicrobial selection and potential de-escalation.
Continue to monitor white count, temperature curve and blood cultures,
Further recommendations as additional data is returned.
����������������������������������������������������������
Chief Complaint
-: Bacteremia
Subjective / Review of Systems
Review of Systems: No Fever and No Chills
Vital Signs / Physical Exam
Vital Signs
Vital Signs
Temp Pulse Resp BP Pulse Ox
97.7 F 72 16 151/84 99
07/13/24 07:30 07/13/24 07:30 07/13/24 07:30 07/13/24 07:30 07/13/24 07:30
Physical Exam
Constitutional: No Acute Distress, Comfortable and Non-toxic
Eyes: No Conjunctival Hemorrhage and Sclera Anicteric
Cardiovascular: S1/S2; Negative S3/S4
Pulmonary: Clear; Negative Wheezes or Rales
Gastrointestinal: Soft, Non Tender, Non Distended, Normal Bowel Sounds, No Rebound and No Guarding
Extremities: Negative Erythema
Musculoskeletal: Negative Joint Swelling
Skin: Negative Rash or Jaundice
Neurological: Awake, Alert and Oriented
Psychological: Calm
Objective Data
Lab Data
Lab Results
07/13/24 07:24
07/13/24 07:24
Estimated Creat Clear 114 ml/min 07/13/24 07:24
Lactic Acid 1.7 mmol/L (0.7-2.0) 07/10/24 20:08
Total Bilirubin 1.8 mg/dl (0.2-1.3) H 07/11/24 05:18
AST 46 U/L (17-59) 07/11/24 05:18
ALT 31 U/L (0-50) 07/11/24 05:18
Alkaline Phosphatase 78 U/L (38-126) 07/11/24 05:18
Most recent labs reviewed.
Micro Results:
07/12/24 10:25 Blood Culture - Preliminary
Blood/Venous No Growth in 24 hours- Final report to follow
07/11/24 17:51 Salmonella/Shigella Culture - Final
Feces/Stool No Salmonella, Shigella, Aeromonas or Plesiomonas species
isolated.
Campylobacter Culture - Final
No Campylobacter species isolated.
Shiga Toxin Test - Final
No E. coli Shiga Toxin 1 or 2 detected.
07/11/24 13:22 Blood Culture - Preliminary
Blood/Venous Klebsiella pneumoniae
Gram Stain - Final
07/10/24 20:40 Blood Culture - Preliminary
Blood/Venous Klebsiella pneumoniae
Gram Stain - Preliminary
07/10/24 16:13 Blood Culture - Final
Blood/Venous Klebsiella pneumoniae
Gram Stain - Final
07/11/24 17:51 C. difficile GDH Antigen & Toxins - Final
Feces/Stool Negative for toxigenic C.difficile
07/10/24 16:13 Influenza Types A & B (RICHAR) - Final
Nasal Swab Negative for Influenza A & B, NAAT
Negative results must be combined with clinical observations
and patient history.
Nucleic Acid Amplification test (NAAT)performed on the
[employer] platform.
Imaging:
07/10/2024 CT abdomen/pelvis: No significant acute abnormality identified in the chest, abdomen or pelvis. No CT evidence for pneumonia. There is an indeterminant 1.8 cm hypoattenuating hepatic lesion. This could be further evaluated on a
nonemergent basis with dedicated MRI abdomen without and with gadolinium contrast. Please see full dictation for additional detail.
[2024-07-13 15:48] VITALS: BP 133/86
[2024-07-13] MEDS: GLUCOPHAGE 500 MG PO (17:12)
[2024-07-13] MEDS: TRICOR 145 MG PO (22:15)
[2024-07-13] MEDS: ELAVIL 50 MG PO (22:15)
[2024-07-13 23:05] VITALS: BP 148/86
[2024-07-14] MEDS: MERREM 500 MG IV (05:54)
[2024-07-14] MEDS: STERILE WATER FOR INJECTION 10 ML IV (05:54)
[2024-07-14 07:00] VITALS: BP 141/87
--- NOTE | 2024-07-14 07:40 | W.PN.HOSP.TC ---
Today's Communication/Plan
-
Follow cultures
cefazolin abx as per ID
Assessment / Plan
Assessment / Plan
Physical Exam
General: Well Developed, Well Nourished and No Apparent Distress
HEENT: NormoCephalic, Moist mucous membranes and Atraumatic
Respiratory: Clear
Cardiac: S1/S2 and Regular Rhythm; No Murmur or Rub
GI: Soft, Non Tender, Normal Bowel Sounds and Distended; No Organomegaly
Musculoskeletal: No Clubbing, No Cyanosis and No Edema
Skin: No Rash
Neuro: AOx3
58M DM HLD Depression Spinal Fusion GERD here with Septic Shock Bacteremia Klebsiella unknown source.
#Septic Shock (fever, tachycardia, tachypnea, hypotension) unclear source possibly pneumonia versus intra-abdominal infection
#Bacteremia Klebsiella
#Acute Toxic Metabolic Encephalopathy Resolved
-follow blood cultures, repeating given growth noted in last culture
-Chest x-ray appreciated Suspect mild left basilar pneumonia.
-CT chest appreciated no evidence pna, 1.8 cm hepatic lesion non-emergent MR w/wo contrast recommended, small LLL nodule follow up CT 12 mos recommended
-IV fluids completed
-empiric vanc discontinued
-weaned off pressors, stable for downgrade to med/surg
-low dose midodrine discontinued with improvement in bp
-ID eval appreciated zosyn switched to meropenem later narrowed to cefazolin
Diarrhea
-cdiff neg likely adverse effect abx
-imodium prn
Hypokalemia
Hypophosphatemia
-likely d/t diarrhea
-monitor replete as necessary
Type 2 diabetes
-Hold metformin
-Insulin sliding scale
Hyperlipidemia
-Continue statin, fenofibrate
Anxiety/depression
-Continue amitriptyline, duloxetine
History of spinal fusion
-continue meloxicam
GERD
-Continue omeprazole
Constipation
-Continue MiraLAX
BPH
PT/OT
Full code
DVT prophylaxis�heparin
Regular diet
I spent a total of 40 minutes with the patient or on the floor. More than 50% of this time involved counseling and coordination of care.
Anticipated Discharge: 24 - 48 hours
Subjective/Interval History
-
Date of Service: July 14, 2024
no acute distress. Appears comfortable at this time
Objective Data
-
Labs:
Laboratory Results
07/14/24
06:41
WBC Pending
Hgb Pending
Hct Pending
Plt Count Pending
Sodium Pending
Potassium Pending
Chloride Pending
Carbon Dioxide Pending
BUN Pending
Creatinine Pending
Glucose Pending
Calcium Pending
Vital Signs:
Vital Signs
Temp Pulse Resp BP Pulse Ox
99.0 F 71 18 148/86 98
07/13/24 23:05 07/13/24 23:05 07/13/24 23:05 07/13/24 23:05 07/13/24 23:05
I&O
07/13/24 07/14/24 07/15/24
06:59 06:59 06:59
Intake Total 1630 / 1630 1020 / 1020
Output Total 1800 / 1800
Balance -170 / -170 1020 / 1020
[2024-07-14 08:16] LABS: Hematocrit 37.7 % (39.0-52.0); Hemoglobin 13.8 g/dL (13.0-18.0); Mean Corp Hgb Conc. 36.6 g/dL (33.0-37.0); Mean Corpuscular Hgb 32.5 pg (27.0-31.0); Mean Corpuscular Volume 88.7 fL (80.0-94.0); Mean Platelet Volume 10.5 fL (7.4-10.4); Platelet Count 181 10^3/uL (130-400); Red Blood Cell Count 4.25 10^6/uL (4.70-6.10); Red Cell Dist. Width 12.7 % (11.5-14.5); White Blood Cell Count 10.4 10^3/uL (4.8-10.8)
[2024-07-14] MEDS: LIPITOR 40 MG PO (08:30)
[2024-07-14] MEDS: HEPARIN 5000 UNITS SC ×2 (08:30→19:59)
[2024-07-14] MEDS: CYMBALTA DELAYED RELEASE 60 MG PO (08:30)
[2024-07-14] MEDS: GLUCOPHAGE 500 MG PO ×2 (08:30→16:00)
[2024-07-14] MEDS: MOBIC 15 MG PO (08:30)
[2024-07-14] MEDS: VISBIOME 1 CAP PO (08:30)
[2024-07-14] MEDS: PROTONIX 40 MG PO ×2 (08:30→19:58)
[2024-07-14 08:49] LABS: Blood Urea Nitrogen 10 mg/dl (9-20); Calcium 8.8 mg/dl (8.4-10.2); Carbon Dioxide 20 mmol/L (22-30); Chloride 104 mmol/L (98-107); Estimated Creatinine Clearance 114 ml/min; Glucose 76 mg/dl (70-99); Magnesium 2.1 mg/dl (1.6-2.3); Potassium 3.8 mmol/L (3.5-5.1); Sodium 138 mmol/L (135-145); eGFR > 60.00
--- NOTE | 2024-07-14 10:15 | W.PN.ID1 ---
Date of Service
Date of Service: July 14, 2024
Today's Communication
Continue antibiotics. See below�
Assessment / Plan
Klebsiella bacteremia (sustained)
- source unclear, although suspect GI etiology.
Fever
Leukocytosis
DM
Dyslipidemia
Depression
GERD
Constipation
Recommendations:
Repeat blood cultures negative x 24 hours. Sensitivities reviewed.
Transition to cefazolin 2 g IV every 8 hours.
If blood cultures remain negative, can transition to Keflex 500 mg p.o. 4 times daily. Continue with antibiotics through 07/22
Continue to monitor white count, temperature curve and blood cultures,
����������������������������������������������������������
Chief Complaint
-: Bacteremia
Subjective / Review of Systems
Review of Systems: No Fever, No Chills and No Abdominal Pain
Vital Signs / Physical Exam
Vital Signs
Vital Signs
Temp Pulse Resp BP Pulse Ox
97.6 F 72 16 141/87 100
07/14/24 07:00 07/14/24 07:00 07/14/24 07:00 07/14/24 07:00 07/14/24 07:00
Physical Exam
Constitutional: No Acute Distress, Comfortable and Non-toxic
Cardiovascular: S1/S2; Negative S3/S4 or Murmur
Pulmonary: Clear; Negative Wheezes, Rales or Rhonchi
Gastrointestinal: Soft, Non Tender, Non Distended, No Rebound and No Guarding
Extremities: Negative Edema, Cyanosis or Erythema
Neurological: Awake and Alert
Psychological: Calm
Objective Data
Lab Data
Lab Results
07/14/24 06:41
07/14/24 06:41
Estimated Creat Clear 114 ml/min 07/14/24 06:41
Lactic Acid 1.7 mmol/L (0.7-2.0) 07/10/24 20:08
Total Bilirubin 1.8 mg/dl (0.2-1.3) H 07/11/24 05:18
AST 46 U/L (17-59) 07/11/24 05:18
ALT 31 U/L (0-50) 07/11/24 05:18
Alkaline Phosphatase 78 U/L (38-126) 07/11/24 05:18
Most recent labs reviewed.
Micro Results:
07/11/24 13:22 Blood Culture - Final
Blood/Venous Klebsiella pneumoniae
Gram Stain - Final
07/12/24 10:25 Blood Culture - Preliminary
Blood/Venous No Growth in 24 hours- Final report to follow
07/11/24 17:51 Salmonella/Shigella Culture - Final
Feces/Stool No Salmonella, Shigella, Aeromonas or Plesiomonas species
isolated.
Campylobacter Culture - Final
No Campylobacter species isolated.
Shiga Toxin Test - Final
No E. coli Shiga Toxin 1 or 2 detected.
07/10/24 20:40 Blood Culture - Preliminary
Blood/Venous Klebsiella pneumoniae
Gram Stain - Preliminary
07/10/24 16:13 Blood Culture - Final
Blood/Venous Klebsiella pneumoniae
Gram Stain - Final
07/11/24 17:51 C. difficile GDH Antigen & Toxins - Final
Feces/Stool Negative for toxigenic C.difficile
07/10/24 16:13 Influenza Types A & B (RICHAR) - Final
Nasal Swab Negative for Influenza A & B, NAAT
Negative results must be combined with clinical observations
and patient history.
Nucleic Acid Amplification test (NAAT)performed on the
[employer] platform.
sd
Organism 1 Klebsiella pneumoniae
1. Klebsiella pneumoniae
M.I.C. RX
--------- ---
Amoxicillin/Potas. Clavulanate <=8/4 S
Ampicillin >16 R
Ampicillin/Sulbactam 16/8 I
Aztreonam <=4 S
Cefazolin <=2 S
Ertapenem <=0.5 S
Ciprofloxacin <=0.25 S
Gentamicin <=2 S
Meropenem <=1 S
Piperacillin/Tazobactam <=8 S
Tetracycline <=4 S
Tobramycin <=2 S
Trimethoprim/Sulfamethoxazole <=2/38 S
Imaging:
07/10/2024 CT abdomen/pelvis: No significant acute abnormality identified in the chest, abdomen or pelvis. No CT evidence for pneumonia. There is an indeterminant 1.8 cm hypoattenuating hepatic lesion. This could be further evaluated on a
nonemergent basis with dedicated MRI abdomen without and with gadolinium contrast. Please see full dictation for additional detail.
[2024-07-14] MEDS: ANCEF 10 IV ×2 (11:25→19:59)
--- NOTE | 2024-07-14 11:26 | CM ---
Home when stable, no needs.
Plan; Home at discharge.
[2024-07-14 13:43] VITALS: BP 147/89; PULSE 82; O2SAT 99
[2024-07-14 15:38] VITALS: BP 130/75
[2024-07-14 16:11] VITALS: BP 143/91; PULSE 67; O2SAT 98
[2024-07-14] MEDS: ELAVIL 50 MG PO (22:51)
[2024-07-14] MEDS: TRICOR 145 MG PO (22:51)
[2024-07-14 23:18] VITALS: BP 129/74
[2024-07-15] MEDS: ANCEF 10 IV ×2 (03:54→12:34)
[2024-07-15 07:00] VITALS: BP 118/78
[2024-07-15 07:12] LABS: Hematocrit 38.7 % (39.0-52.0); Hemoglobin 14.1 g/dL (13.0-18.0); Mean Corp Hgb Conc. 36.4 g/dL (33.0-37.0); Mean Corpuscular Hgb 32.3 pg (27.0-31.0); Mean Corpuscular Volume 88.8 fL (80.0-94.0); Mean Platelet Volume 10.3 fL (7.4-10.4); Platelet Count 203 10^3/uL (130-400); Red Blood Cell Count 4.36 10^6/uL (4.70-6.10); Red Cell Dist. Width 12.4 % (11.5-14.5); White Blood Cell Count 11.3 10^3/uL (4.8-10.8)
--- NOTE | 2024-07-15 07:36 | W.PN.HOSP.TC ---
Today's Communication/Plan
-
switch to Keflex abx and monitor
Assessment / Plan
Assessment / Plan
Physical Exam
General: Well Developed, Well Nourished and No Apparent Distress
HEENT: NormoCephalic, Moist mucous membranes and Atraumatic
Respiratory: Clear
Cardiac: S1/S2 and Regular Rhythm; No Murmur or Rub
GI: Soft, Non Tender, Normal Bowel Sounds and Distended; No Organomegaly
Musculoskeletal: No Clubbing, No Cyanosis and No Edema
Skin: No Rash
Neuro: AOx3
58M DM HLD Depression Spinal Fusion GERD here with Septic Shock Bacteremia Klebsiella unknown source.
#Septic Shock (fever, tachycardia, tachypnea, hypotension) unclear source possibly pneumonia versus intra-abdominal infection
#Bacteremia Klebsiella
#Acute Toxic Metabolic Encephalopathy Resolved
-follow blood cultures, repeating given growth noted in last culture
-Chest x-ray appreciated Suspect mild left basilar pneumonia.
-CT chest appreciated no evidence pna, 1.8 cm hepatic lesion non-emergent MR w/wo contrast recommended, small LLL nodule follow up CT 12 mos recommended
-IV fluids completed
-empiric vanc discontinued
-weaned off pressors, stable for downgrade to med/surg
-low dose midodrine discontinued with improvement in bp
-ID eval appreciated zosyn switched to meropenem later narrowed to cefazolin switched to oral abx Keflex
Diarrhea
-cdiff neg likely adverse effect abx
-imodium prn
Hypokalemia
Hypophosphatemia
-likely d/t diarrhea
-monitor replete as necessary
Type 2 diabetes
-Hold metformin
-Insulin sliding scale
Hyperlipidemia
-Continue statin, fenofibrate
Anxiety/depression
-Continue amitriptyline, duloxetine
History of spinal fusion
-continue meloxicam
GERD
-Continue omeprazole
Constipation
-Continue MiraLAX
BPH
PT/OT
Full code
DVT prophylaxis�heparin
Regular diet
I spent a total of 40 minutes with the patient or on the floor. More than 50% of this time involved counseling and coordination of care.
Anticipated Discharge: Within 24 hours
Subjective/Interval History
-
Date of Service: July 15, 2024
no acute distress. appears comfortable
Objective Data
-
Labs:
Laboratory Results
07/15/24
06:16
WBC 11.3 H
Hgb 14.1
Hct 38.7 L
Plt Count 203
Sodium Pending
Potassium Pending
Chloride Pending
Carbon Dioxide Pending
BUN Pending
Creatinine Pending
Glucose Pending
Calcium Pending
Vital Signs:
Vital Signs
Temp Pulse Resp BP Pulse Ox
98.3 F 69 18 129/74 96
07/14/24 23:18 07/14/24 23:18 07/14/24 23:18 07/14/24 23:18 07/14/24 23:18
I&O
07/14/24 07/15/24 07/16/24
06:59 06:59 06:59
Intake Total 1020 / 1020 1190 / 1190
Balance 1020 / 1020 1190 / 1190
[2024-07-15 07:41] LABS: Blood Urea Nitrogen 13 mg/dl (9-20); Calcium 8.9 mg/dl (8.4-10.2); Carbon Dioxide 22 mmol/L (22-30); Chloride 100 mmol/L (98-107); Estimated Creatinine Clearance 114 ml/min; Glucose 88 mg/dl (70-99); Magnesium 2.1 mg/dl (1.6-2.3); Potassium 3.6 mmol/L (3.5-5.1); Sodium 135 mmol/L (135-145); eGFR > 60.00
[2024-07-15] MEDS: CYMBALTA DELAYED RELEASE 60 MG PO (08:10)
[2024-07-15] MEDS: LIPITOR 40 MG PO (08:11)
[2024-07-15] MEDS: VISBIOME 1 CAP PO (08:11)
[2024-07-15] MEDS: MOBIC 15 MG PO (08:11)
[2024-07-15] MEDS: HEPARIN 5000 UNITS SC ×2 (08:11→20:19)
[2024-07-15] MEDS: PROTONIX 40 MG PO ×2 (08:11→20:19)
[2024-07-15] MEDS: GLUCOPHAGE 500 MG PO ×2 (08:11→17:59)
--- NOTE | 2024-07-15 12:55 | W.PN.ID1 ---
Date of Service
Date of Service: July 15, 2024
Today's Communication
Continue antibiotics. See below�
Assessment / Plan
Klebsiella bacteremia (sustained)
- source unclear, although suspect GI etiology.
- repeat blood cultures neg x 72h
Fever
Leukocytosis
DM
Dyslipidemia
Depression
GERD
Constipation
Recommendations:
Repeat blood cultures negative x 72 hours. Sensitivities reviewed.
Continue cefazolin 2 g IV every 8 hours.
At D/C, transition to Keflex 500 mg p.o. 4 times daily. Continue with antibiotics through 07/22
����������������������������������������������������������
Chief Complaint
-: Bacteremia
Subjective / Review of Systems
Review of Systems: No Fever and No Chills
Vital Signs / Physical Exam
Vital Signs
Vital Signs
Temp Pulse Resp BP Pulse Ox
98.2 F 79 22 118/78 99
07/15/24 07:00 07/15/24 07:00 07/15/24 07:00 07/15/24 07:00 07/15/24 07:00
Physical Exam
Constitutional: No Acute Distress, Comfortable and Non-toxic
Cardiovascular: S1/S2; Negative S3/S4 or Murmur
Pulmonary: Clear; Negative Wheezes, Rales or Rhonchi
Gastrointestinal: Soft, Non Tender, Non Distended, No Rebound and No Guarding
Extremities: Negative Edema, Cyanosis or Erythema
Neurological: Awake and Alert
Psychological: Calm
Objective Data
Lab Data
Lab Results
07/15/24 06:16
07/15/24 06:16
Estimated Creat Clear 114 ml/min 07/15/24 06:16
Lactic Acid 1.7 mmol/L (0.7-2.0) 07/10/24 20:08
Total Bilirubin 1.8 mg/dl (0.2-1.3) H 07/11/24 05:18
AST 46 U/L (17-59) 07/11/24 05:18
ALT 31 U/L (0-50) 07/11/24 05:18
Alkaline Phosphatase 78 U/L (38-126) 07/11/24 05:18
Most recent labs reviewed.
Micro Results:
07/12/24 10:25 Blood Culture - Preliminary
Blood/Venous No Growth in 72 hours- Final report to follow
07/11/24 13:22 Blood Culture - Final
Blood/Venous Klebsiella pneumoniae
Gram Stain - Final
07/11/24 17:51 Salmonella/Shigella Culture - Final
Feces/Stool No Salmonella, Shigella, Aeromonas or Plesiomonas species
isolated.
Campylobacter Culture - Final
No Campylobacter species isolated.
Shiga Toxin Test - Final
No E. coli Shiga Toxin 1 or 2 detected.
07/10/24 20:40 Blood Culture - Preliminary
Blood/Venous Klebsiella pneumoniae
Gram Stain - Preliminary
07/10/24 16:13 Blood Culture - Final
Blood/Venous Klebsiella pneumoniae
Gram Stain - Final
07/11/24 17:51 C. difficile GDH Antigen & Toxins - Final
Feces/Stool Negative for toxigenic C.difficile
07/10/24 16:13 Influenza Types A & B (RICHAR) - Final
Nasal Swab Negative for Influenza A & B, NAAT
Negative results must be combined with clinical observations
and patient history.
Nucleic Acid Amplification test (NAAT)performed on the
[email or web address] platform.
sd
Organism 1 Klebsiella pneumoniae
1. Klebsiella pneumoniae
M.I.C. RX
--------- ---
Amoxicillin/Potas. Clavulanate <=8/4 S
Ampicillin >16 R
Ampicillin/Sulbactam 16/8 I
Aztreonam <=4 S
Cefazolin <=2 S
Ertapenem <=0.5 S
Ciprofloxacin <=0.25 S
Gentamicin <=2 S
Meropenem <=1 S
Piperacillin/Tazobactam <=8 S
Tetracycline <=4 S
Tobramycin <=2 S
Trimethoprim/Sulfamethoxazole <=2/38 S
Imaging:
07/10/2024 CT abdomen/pelvis: No significant acute abnormality identified in the chest, abdomen or pelvis. No CT evidence for pneumonia. There is an indeterminant 1.8 cm hypoattenuating hepatic lesion. This could be further evaluated on a
nonemergent basis with dedicated MRI abdomen without and with gadolinium contrast. Please see full dictation for additional detail.
[2024-07-15 15:36] VITALS: BP 132/81
[2024-07-15] MEDS: KEFLEX 500 MG PO ×2 (17:59→22:17)
[2024-07-15] MEDS: TRICOR 145 MG PO (22:17)
[2024-07-15] MEDS: ELAVIL 50 MG PO (22:17)
[2024-07-15 23:00] VITALS: BP 120/80
[2024-07-16 07:20] VITALS: BP 121/85
--- NOTE | 2024-07-16 07:34 | W.PN.HOSP.TC ---
Today's Communication/Plan
-
discharge
Assessment / Plan
Assessment / Plan
Physical Exam
General: Well Developed, Well Nourished and No Apparent Distress
HEENT: NormoCephalic, Moist mucous membranes and Atraumatic
Respiratory: Clear
Cardiac: S1/S2 and Regular Rhythm; No Murmur or Rub
GI: Soft, Non Tender, Normal Bowel Sounds and Distended; No Organomegaly
Musculoskeletal: No Clubbing, No Cyanosis and No Edema
Skin: No Rash
Neuro: AOx3
58M DM HLD Depression Spinal Fusion GERD here with Septic Shock Bacteremia Klebsiella unknown source.
#Septic Shock (fever, tachycardia, tachypnea, hypotension) unclear source possibly pneumonia versus intra-abdominal infection
#Bacteremia Klebsiella
#Acute Toxic Metabolic Encephalopathy Resolved
-follow blood cultures, repeating given growth noted in last culture
-Chest x-ray appreciated Suspect mild left basilar pneumonia.
-CT chest appreciated no evidence pna, 1.8 cm hepatic lesion non-emergent MR w/wo contrast recommended, small LLL nodule follow up CT 12 mos recommended
-IV fluids completed
-empiric vanc discontinued
-weaned off pressors, downgraded to med/surg
-low dose midodrine discontinued with improvement in bp
-ID eval appreciated zosyn switched to meropenem later narrowed to cefazolin switched to oral abx Keflex tolerating well. to continue through 07/22
Diarrhea
-cdiff neg likely adverse effect abx
-imodium prn
Hypokalemia resolved
Hypophosphatemia resolved
-likely d/t diarrhea
-repleted
Type 2 diabetes
-sliding scale while inpt
-ok to resume Metformin on discharge
Hyperlipidemia
-Continue statin, fenofibrate
Anxiety/depression
-Continue amitriptyline, duloxetine
History of spinal fusion
-continue meloxicam
GERD
-Continue omeprazole
Constipation resolved
Diarrhea resolving
BPH
PT/OT
Full code
DVT prophylaxis�heparin
Regular diet
Total Time Preparing Discharge ___40____ minutes including examination of the patient, summary of the hospital stay, instructions for continuing care to all relevant caregivers; and preparation of discharge records, prescriptions, and referral
forms if necessary.
Anticipated Discharge: Today
Subjective/Interval History
-
Date of Service: July 16, 2024
Seen and examined at bedside in no acute distress resting comfortably in bed. Reports improvement in diarrhea. Denies new acute issues at this time. Eager to go home.
Objective Data
-
Labs:
Laboratory Results
07/16/24
07:09
WBC Pending
Hgb Pending
Hct Pending
Plt Count Pending
Sodium Pending
Potassium Pending
Chloride Pending
Carbon Dioxide Pending
BUN Pending
Creatinine Pending
Glucose Pending
Calcium Pending
Vital Signs:
Vital Signs
Temp Pulse Resp BP Pulse Ox
97.9 F 86 18 120/80 97
07/15/24 23:00 07/15/24 23:00 07/15/24 23:00 07/15/24 23:00 07/15/24 23:00
I&O
07/15/24 07/16/24 07/17/24
06:59 06:59 06:59
Intake Total 1190 / 1190 660 / 660
Balance 1190 / 1190 660 / 660
[2024-07-16] MEDS: CYMBALTA DELAYED RELEASE 60 MG PO (08:07)
[2024-07-16] MEDS: GLUCOPHAGE 500 MG PO (08:07)
[2024-07-16] MEDS: PROTONIX 40 MG PO (08:07)
[2024-07-16] MEDS: MOBIC 15 MG PO (08:07)
[2024-07-16] MEDS: VISBIOME 1 CAP PO (08:08)
[2024-07-16] MEDS: HEPARIN 5000 UNITS SC (08:08)
[2024-07-16] MEDS: LIPITOR 40 MG PO (08:08)
[2024-07-16] MEDS: KEFLEX 500 MG PO ×2 (08:08→14:58)
[2024-07-16 08:27] LABS: Blood Urea Nitrogen 17 mg/dl (9-20); Calcium 9.3 mg/dl (8.4-10.2); Carbon Dioxide 22 mmol/L (22-30); Chloride 100 mmol/L (98-107); Estimated Creatinine Clearance 114 ml/min; Glucose 89 mg/dl (70-99); Magnesium 2.1 mg/dl (1.6-2.3); Phosphorus 3.2 mg/dl (2.5-4.5); Potassium 3.9 mmol/L (3.5-5.1); Sodium 137 mmol/L (135-145); eGFR > 60.00
[2024-07-16 08:31] LABS: Hematocrit 42.5 % (39.0-52.0); Hemoglobin 15.5 g/dL (13.0-18.0); Mean Corp Hgb Conc. 36.5 g/dL (33.0-37.0); Mean Corpuscular Volume 90.6 fL (80.0-94.0); Mean Platelet Volume 10.1 fL (7.4-10.4); Platelet Count 240 10^3/uL (130-400); Red Blood Cell Count 4.69 10^6/uL (4.70-6.10); Red Cell Dist. Width 12.4 % (11.5-14.5); White Blood Cell Count 9.7 10^3/uL (4.8-10.8)
--- NOTE | 2024-07-16 11:52 | CM ---
CM reviewed with Hospitalist, patient for discharge today. Patient seen bedside, reports no needs to CM at this time. Patient reports a family member will be providing transportation home. CM offered VN to patient, patient declining at this time. CM
discussed patient can have VN set up through PCP once discharged from the Hospital if patient changes mind. CM will continue to follow for all discharge planning needs.
Plan; home with family/caregiver, no needs.
--- NOTE | 2024-07-16 13:48 | W.PN.ID1 ---
Date of Service
Date of Service: July 16, 2024
Today's Communication
Transition to oral Keflex.
Assessment / Plan
Klebsiella bacteremia (sustained)
- source unclear, although suspect GI etiology.
- repeat blood cultures neg x 72h
Fever
Leukocytosis
DM
Dyslipidemia
Depression
GERD
Constipation
Recommendations:
Repeat blood cultures remain negative.
Transition to Keflex 500 mg p.o. 4 times daily. Continue with antibiotics through 07/22
����������������������������������������������������������
Chief Complaint
-: Bacteremia
Subjective / Review of Systems
Review of Systems: No Fever, No Chills, No Cough and No Abdominal Pain
Vital Signs / Physical Exam
Vital Signs
Vital Signs
Temp Pulse Resp BP Pulse Ox
97.7 F 96 18 121/85 97
07/16/24 07:20 07/16/24 07:20 07/16/24 07:20 07/16/24 07:20 07/16/24 07:20
Physical Exam
Constitutional: No Acute Distress, Comfortable and Non-toxic
Eyes: Sclera Anicteric
Pulmonary: Clear and Non Labored
Gastrointestinal: Non Distended
Extremities: Negative Cyanosis or Erythema
Neurological: Awake and Alert
Psychological: Calm
Objective Data
Lab Data
Lab Results
07/16/24 07:09
07/16/24 07:09
Estimated Creat Clear 114 ml/min 07/16/24 07:09
Lactic Acid 1.7 mmol/L (0.7-2.0) 07/10/24 20:08
Total Bilirubin 1.8 mg/dl (0.2-1.3) H 07/11/24 05:18
AST 46 U/L (17-59) 07/11/24 05:18
ALT 31 U/L (0-50) 07/11/24 05:18
Alkaline Phosphatase 78 U/L (38-126) 07/11/24 05:18
Most recent labs reviewed.
CT Scan: Image Reviewed and Report Reviewed
Micro Results:
07/12/24 10:25 Blood Culture - Preliminary
Blood/Venous No Growth in 4 days- Final report to follow
07/11/24 13:22 Blood Culture - Final
Blood/Venous Klebsiella pneumoniae
Gram Stain - Final
07/11/24 17:51 Salmonella/Shigella Culture - Final
Feces/Stool No Salmonella, Shigella, Aeromonas or Plesiomonas species
isolated.
Campylobacter Culture - Final
No Campylobacter species isolated.
Shiga Toxin Test - Final
No E. coli Shiga Toxin 1 or 2 detected.
07/10/24 20:40 Blood Culture - Preliminary
Blood/Venous Klebsiella pneumoniae
Gram Stain - Preliminary
07/10/24 16:13 Blood Culture - Final
Blood/Venous Klebsiella pneumoniae
Gram Stain - Final
07/11/24 17:51 C. difficile GDH Antigen & Toxins - Final
Feces/Stool Negative for toxigenic C.difficile
07/10/24 16:13 Influenza Types A & B (RICHAR) - Final
Nasal Swab Negative for Influenza A & B, NAAT
Negative results must be combined with clinical observations
and patient history.
Nucleic Acid Amplification test (NAAT)performed on the
[employer] platform.
Organism 1 Klebsiella pneumoniae
1. Klebsiella pneumoniae
M.I.C. RX
--------- ---
Amoxicillin/Potas. Clavulanate <=8/4 S
Ampicillin >16 R
Ampicillin/Sulbactam 16/8 I
Aztreonam <=4 S
Cefazolin <=2 S
Ertapenem <=0.5 S
Ciprofloxacin <=0.25 S
Gentamicin <=2 S
Meropenem <=1 S
Piperacillin/Tazobactam <=8 S
Tetracycline <=4 S
Tobramycin <=2 S
Trimethoprim/Sulfamethoxazole <=2/38 S
Imaging:
07/10/2024 CT abdomen/pelvis: No significant acute abnormality identified in the chest, abdomen or pelvis. No CT evidence for pneumonia. There is an indeterminant 1.8 cm hypoattenuating hepatic lesion. This could be further evaluated on a
nonemergent basis with dedicated MRI abdomen without and with gadolinium contrast. Please see full dictation for additional detail.
Care Review
Plan reviewed with: Physician (Hospitalist)
--- NOTE | 2024-07-16 14:53 | W.DCSUMMARY ---
Discharge Summary
Discharge Data
Date of Admission: 07/10/24
Date of Discharge: 07/16/24
-
Pending Results: Yes
Additional Pending Results:
official blood culture results
Discharge Plan
-
Patient Disposition: Home with Home Care
Discharge Diagnosis/Procedures: Septic Shock suspect GI infection
Bacteremia Klebsiella
Acute Toxic Metabolic Encephalopathy Resolved
Diarrhea
Hypokalemia resolved
Hypophosphatemia resolved
Type 2 diabetes
Hyperlipidemia
Anxiety/depression
History of spinal fusion
GERD
Hepatic Lesion 1.8 cm
Left Lower Lobe Pulmonary Nodule
Condition: Fair
Diet: Regular
Activity: As tolerated
Driving Restrictions: Not until seen by your Dr
Blood Work: CBC and BMP with primary care provider in 1 week of discharge
Others Tests: Please obtain MRI abdomen with and without contrast with primary care provider in 1 month of discharge to further evaluate 1.8 cm hepatic lesion.
Given smoking history, please repeat CT chest with primary care provider in 1 year to continue follow up of small left lower lobe pulmonary nodule.
Other Services: PT and OT
Activity Restrictions/Additional Instructions:
Please follow up with primary care provider in 1 week of discharge.
You have been prescribed Keflex to continue through 07/22 to complete treatment for suspected GI infection with associate Klebsiella bacteremia since resolved.
Probiotic has been prescribed while on antibiotics to promote gut health. This is available over the counter.
Please take medications as prescribed/recommended and follow up with primary care provider and/or other healthcare provider involved in your care for refills and/or further adjustment to your medication regimen as necessary.
Referrals:
Dhruv Torres DO [Family Provider] - in one week
Prescriptions:
New
cephalexin 500 mg Capsule
500 mg PO QID Qty: 26 0RF
Rx Instructions:
Last day of antibiotics is 07/22/24
Visbiome 112.5 billion cell capsule
1 cap PO DAILY 7 Days Qty: 7 0RF
Continued
atorvastatin 40 mg tablet
40 mg PO DAILY
metformin 500 mg tablet
500 mg PO BID
meloxicam 15 mg tablet
15 mg PO DAILY
amitriptyline 50 mg tablet
50 mg PO HS
omeprazole 20 mg capsule,delayed release(DR/EC)
20 mg PO BID
polyethylene glycol 3350 17 gram/dose powder
17 g PO DAILY
duloxetine 60 mg capsule,delayed release(DR/EC)
60 mg PO DAILY
fenofibrate nanocrystallized 145 mg tablet
145 mg PO HS
Discharge Orders:
Discharge Patient (As Directed); Ordered 07/16/24
Ordered By: Lydia Riley
Discharge Date and Time
Print Language: GUAMANIAN
[2024-07-16 15:15] VITALS: BP 125/79
== END 2024-07-16 16:05 | disposition home or self-care (01) | DRG 871 ==
LOC: 4 WEST ACU 21:00
PROVIDERS: ADMITTING PHYSICIAN Hospitalist; ATTENDING PHYSICIAN Internal Medicine; EMERGENCY PHYSICIAN Student in an Organized Health Care Education/Training Program; FAMILY PHYSICIAN Family Medicine; OTHER PHYSICIAN Internal Medicine Infectious Disease
DX: A41.59 Other Gram-negative sepsis (principal); G92.8 Other toxic encephalopathy; R65.21 Severe sepsis with septic shock; J18.9 Pneumonia, unspecified organism; E87.20 Acidosis, unspecified; E11.9 Type 2 diabetes mellitus without complications; F32.A Depression, unspecified; K76.9 Liver disease, unspecified; E83.39 Other disorders of phosphorus metabolism; E78.5 Hyperlipidemia, unspecified; E87.6 Hypokalemia; F41.9 Anxiety disorder, unspecified; K21.9 Gastro-esophageal reflux disease without esophagitis; K59.00 Constipation, unspecified; N40.0 Benign prostatic hyperplasia without lower urinary tract symptoms; R19.7 Diarrhea, unspecified; R91.1 Solitary pulmonary nodule; Z79.84 Long term (current) use of oral hypoglycemic drugs; Z79.899 Other long term (current) drug therapy; Z87.891 Personal history of nicotine dependence; Z98.1 Arthrodesis status
CPT/HCPCS: 71046; 71260; 74177; 80048; 80053; 81003; 82962; 83036; 83605; 83735; 84100; 84484; 85025; 85027; 87040; 87045; 87046; 87149; 87186; 87205; 87324; 87427; 87449; 87502; 87811; 93005; 96361; 96365; 96366; 96367; 96375; 97116; 97162; 97166; 97530; 97535; 99285; 99406; Q9967